=== PATIENT | male | born 1955 | race Caucasian/White ===

== ENCOUNTER 2018-08-25 06:05 | Day surgery (SDC) | payer BC ==
[2018-08-13 18:34] VITALS: BMI 33.0
[2018-08-25 06:34] VITALS: RESP 18
[2018-08-25] MEDS ORDERED: Lactated Ringer's 1,000 ML IV ONE (06:47)
[2018-08-25] MEDS ORDERED: Lidocaine 1% Inj (20ml) ONE (10:28)
[2018-08-25] MEDS ORDERED: Bupivacaine HCl 0.5% PF (30 ml) Inj ONE (10:28)
[2018-08-25] MEDS ORDERED: MethylPREDNISolone Depo 40 mg/ml Inj ONE (10:28)
[2018-08-25] MEDS ORDERED: Iohexol 300 10 ML ONE (10:28)
[2018-08-25] MEDS ORDERED: Propofol 10 mg/ml Inj (20 ML) ONE (10:39)
[2018-08-25] MEDS ORDERED: Midazolam 2 MG/2 ML VIAL ONE (10:39)
[2018-08-25] MEDS ORDERED: Lidocaine 1% Inj (20ml) IJ ONE (10:47)
[2018-08-25] MEDS ORDERED: Bupivacaine 0.5% Inj(30mL) IJ ONE (10:47)
[2018-08-25] MEDS ORDERED: Iohexol 300 10 ML IJ ONE (10:47)
[2018-08-25] MEDS ORDERED: methylPREDNISolone Depo 80 mg/ml Inj IM ONE (10:47)
[2018-08-25] MEDS ORDERED: Lactated Ringer's 1,000 ML IV SCH (11:15)
[2018-08-25 12:19] VITALS: O2SAT 99
[2018-08-25 12:43] VITALS: BP 130/79; PULSE 70; TEMP 97.3
--- NOTE | 2018-08-25 13:45 | RAD ---
Date of service: 08/25/2018 PROCEDURE: Fluoroscopy up to 1 hr. HISTORY: PAIN MANAGEMENT COMPARISON: None TECHNIQUE: Standard protocol for this study/examination. FINDINGS: Total fluoroscopic time (continuous mode) utilized during the procedure 49.3 seconds. Total exam DLP: 24.89 (mGy). IMPRESSION: Submitted images from the current procedure: 2.0 Less than 1 hr fluoroscopic assistance provided during performance of the procedure.
--- NOTE | 2018-08-26 01:09 | OP ---
PROCEDURE DATE: 08/25/2018 PREOPERATIVE DIAGNOSIS: Failed back syndrome, facet hypertrophy, lumbar spondylosis. POSTOPERATIVE DIAGNOSIS: Failed back syndrome, facet hypertrophy, lumbar spondylosis. PROCEDURE: Right sided L3, L4, L5 medial branch nerve block, right sacroiliac joint block. SURGEON: Rebel Borges MD CO-SURGEON: Dr. Lazar. CAPACITY PLANNING ENGINEER: Neri Hammond, physician campaign assistant, who helped me perform the surgery. DESCRIPTION OF PROCEDURE: The patient was brought to the operating room, placed in a prone position. Back of the lumbar area thoroughly prepped in standard sterile manner. After prepping and draping the area, the fluoroscopy has been used in order to check the levels and the previously placed screws have been noted. Lidocaine with epinephrine has been given corresponding to the area of L3, L4 and L5 facets. Lidocaine with epinephrine has been given in this area by using a spinal needle. The needles have been placed close to the median branch nerves at 3, 4, 5. After that confirmation, Marcaine mixed with Depo-Medrol has been given in this area. Lyman have been removed. Later, needle has been placed on the right sacroiliac joint. Once it is confirmed with x-ray fluoroscopy, dye has been injected and the joint has been noted and Marcaine mixed with Depo-Medrol has been given to this area. The patient tolerated the procedure. After procedure, mobilized to the recovery room. Rebel Borges MD
== END 2018-08-25 12:35 | disposition home or self-care (01) ==
LOC: H.OPSURG 06:05
PROVIDERS: ATTEND Neurological Surgery
DX: M51.26 Other intervertebral disc displacement, lumbar region (principal); M47.816 Spondylosis without myelopathy or radiculopathy, lumbar region
CPT/HCPCS: 64493; 64494; J1030; J1040; J2250; J7120; Q9967